=== PATIENT | female | born 1970 | race Two or more races ===

== ENCOUNTER 2017-03-24 19:12 | Emergency (ER) | payer OTHER ==
[~2017-03-24] VITALS: Ht 162.6 cm; Wt 64.4 kg
--- NOTE | 2017-03-24 19:16 | NUR ---
pt chad to er bed 14. c/o chest pain, describe it as "needles." here for medical clearance prior to booking. anxious appearing. gowned and placed on monitor. tachy fire captain. asking for xanax. awaiting md hobbs.
--- NOTE | 2017-03-24 19:22 | NUR ---
dr lacey at bedside for eval.
[2017-03-24] MEDS ORDERED: IV SET PRIMARY 1 EA INFUS.SET MC ONE (19:37)
[2017-03-24] MEDS ORDERED: IV NS 0.9% 1,000 ML ONE ×2 (19:37→21:08)
--- NOTE | 2017-03-24 19:37 | NUR ---
iv line started blood drawn and sent to lab.
[2017-03-24 19:40] LABS: BASOPHILS % (AUTO) 0.3 % (0.0-2.0); EOSINOPHILS # (AUTO) 0.2 /CMM (0.0-0.7); EOSINOPHILS % (AUTO) 2.3 % (0.0-6.0); HEMATOCRIT 32 % (33-45); HEMOGLOBIN 9.7 g/dL (11.5-14.8); LYMPHOCYTES # (AUTO) 2.3 /CMM (0.8-4.8); LYMPHOCYTES % (AUTO) 29.5 % (20.0-44.0); MEAN CORPUSCULAR HEMOGLOBIN 21 PG (26.0-33.0); MEAN CORPUSCULAR HGB CONC 30 g/dl (31.0-36.0); MEAN CORPUSCULAR VOLUME 71 fL (82-100); MONOCYTES # (AUTO) 0.4 /CMM (0.1-1.30); MONOCYTES % (AUTO) 5.8 % (2.0-12.0); NEUTROPHILS # (AUTO) 4.8 /CMM (1.8-8.9); NEUTROPHILS % (AUTO) 62.1 % (43.0-81.0); PLATELET COUNT (AUTO) 327 /CMM (150-450); RED BLOOD CELL COUNT(AUTO) 4.54 MIL/uL (4.0-5.2); WHITE BLOOD COUNT (AUTO) 7.7 K/uL (4.3-11.0)
[2017-03-24] MEDS: IV NS 0.9% 1,000 ML BAG IV ONE ×2 (19:43→21:10)
[2017-03-24 19:52] LABS: INR 0.92 (0.87-1.13); PROTHROMBIN TIME 9.6 SECS (9.5-12.7)
[2017-03-24 19:55] LABS: ALANINE AMINOTRANSFERASE 19 U/L (12-78); ALBUMIN 3.2 g/dL (3.4-5.0); ALKALINE PHOSPHATASE 91 U/L (46-116); ASPARTATE AMINOTRANSFERASE 13 U/L (15-37); BILIRUBIN,DIRECT 0.1 mg/dL (0.0-0.2); BILIRUBIN,TOTAL 0.3 mg/dL (0.2-1.0); CALCIUM, SERUM 8.8 mg/dL (8.5-10.1); CARBON DIOXIDE 30 mmol/L (21-32); CHLORIDE 100 mmol/L (98-107); CREATININE 0.6 mg/dL (0.6-1.3); GFR 107 mL/min (>60); POTASSIUM 3.7 mmol/L (3.5-5.1); SODIUM SERUM 135 mmol/L (136-145); TOTAL PROTEIN, SERUM 6.6 g/dL (6.4-8.2); UREA NITROGEN, BLOOD 11 mg/dL (7-18)
[2017-03-24 19:56] LABS: TROPONIN I < 0.017 ng/mL (0.00-0.056)
[2017-03-24 19:57] LABS: GLUCOSE 542 mg/dL (74-106)
[2017-03-24] MEDS: INSULIN ASPART NOVOLOG 100 UNIT/ML CARTRIDGE SQ ONE (20:00)
[2017-03-24] MEDS: INSULIN LISPRO/ASPART 100 UNIT/ML CARTRIDGE SQ SCH (20:04)
[2017-03-24 20:21] LABS: APPEARANCE,URINE Slightly Cloudy (CLEAR); BILIRUBIN,URINE Negative (NEGATIVE); BLOOD, URINE Negative Ery/uL (NEGATIVE); COLOR,URINE Yellow (YELLOW); KETONES,URINE Trace (NEGATIVE); LEUKOCYTE ESTERASE ,URINE Negative (NEGATIVE); NITRITE, URINE Negative (NEGATIVE); PROTEIN,URINE Negative (NEGATIVE); UROBILINOGEN,URINE 0.2 EU/dL (0.2)
[2017-03-24 20:27] LABS: UGLUCOSE 500 MG/DL mg/dL (NEGATIVE)
[2017-03-24 20:46] LABS: RBC,URINE 0-2 /HPF (0-2)
[2017-03-24 20:47] LABS: ADD URINE CULTURE YES; BACTERIA,URINE Moderate /HPF (None Seen); SQUAMOUS EPITHELIAL CELL,UR Many /HPF (None Seen); WBC,URINE 0-2 /HPF (0-3)
[2017-03-24] MEDS ORDERED: LORAZEPAM 1 MG TABLET ONE (21:02)
[2017-03-24] MEDS ORDERED: IV SET PRIMARY PUMP SET 1 EA INFUS.SET MC ONE (21:08)
[2017-03-24] MEDS: LORAZEPAM 1 MG TABLET PO ONE (21:10)
--- NOTE | 2017-03-24 22:45 | NUR ---
IV removed. Catheter intact and site benign. Pressure and 4x4 applied to site. No bleeding noted.
--- NOTE | 2017-03-24 22:47 | NUR ---
dr srinivasan aware of pt's current blood sugar. ok'd pt to be discharge to [facility] w/ instructions to have pt's blood sugar be monitored for the next 2-3 hours. PD verbalized understanding of instructions stating they have nurses and dispenseries at the nursing home. pt is cleared for booking. d/c in stable condition.
[2017-03-24 22:52] VITALS: BP 128/76
== END 2017-03-24 22:53 ==
LOC: EDBD 19:14 → ER 19:14
DX: E11.65 Type 2 diabetes mellitus with hyperglycemia (principal); R00.2 Palpitations; D50.9 Iron deficiency anemia, unspecified; F41.9 Anxiety disorder, unspecified; I10 Essential (primary) hypertension; R82.90 Unspecified abnormal findings in urine
CPT/HCPCS: 36415; 71010-TC; 80048-TC; 80076-TC; 81000-TC; 82962-TC; 84484-TC; 85025-TC; 85730-TC; 87086-TC; A4606; J1815; J7030; Z7610